=== PATIENT | female | born 1980 | race Two or more races ===

== ENCOUNTER 2017-11-08 06:21 | Emergency (ER) | payer SELFPAY ==
[~2017-11-08] VITALS: Ht 165.1 cm; Wt 68.0 kg
[2017-11-08 06:35] VITALS: BP 126/72
== END 2017-11-08 10:24 | disposition left against medical advice (07) ==
LOC: EDBD 06:21 → ER 06:30
DX: R06.02 Shortness of breath (principal); F41.9 Anxiety disorder, unspecified; Z53.21 Procedure and treatment not carried out due to patient leaving prior to being seen by health care provider
CPT/HCPCS: 71046; 93005

== ENCOUNTER → 2019-11-25 | Emergency (ER) | payer SELFPAY ==
[~2019-11-25] VITALS: Ht 0.1 cm; Wt 0.0 kg
[~2019-11-25] MED LIST: SODIUM CHLORIDE 0.9% 1,000 ML IV ONE; THIAMINE 100mg/ml INJ (200mg/2ml VIAL) ONE; THIAMINE INJ 100 MG in SODIUM CHLORIDE 0.9% 1,000 ML IV ONE
[2019-11-25 20:50] LABS: Basophils # (auto) 0 10 ^3/uL (0-0.2); Eosinophils # (auto) 0 10 ^3/uL (0-0.8); Lymphocytes # (auto) 0.8 10 ^3/uL (0.4-5.4); Monocytes # (auto) 0.3 10 ^3/uL (0-1.3); Neutrophils # (auto) 3.4 10 ^3/uL (1.6-8.6)
[2019-11-25 20:52] LABS: Basophils % (auto) 0.8 % (0.0-2.0); Eosinophils % (auto) 0.9 % (0.0-7.0); Hematocrit 30.3 % (36.0-46.0); Hemoglobin 9.4 g/dL (12.2-16.2); Lymphocytes % (auto) 16.7 % (10.0-50.0); Mean Corpuscular Hemoglobin 22.3 pg (28.0-32.0); Mean Corpuscular Hgb Conc. 31.1 g/dL (32.0-36.0); Mean Corpuscular Volume 71.8 fL (80.0-100.0); Monocytes % (auto) 6.2 % (0.0-12.0); Neutrophils % (auto) 75.4 % (37.0-80.0); Platelet Count (auto) 267 10^3/uL (140-450); Red Blood Cells 4.22 10^6/uL (4.0-5.20); Red Cell Distribution Width 17.4 % (11.8-14.3); White Blood Cell 4.6 10^3/uL (4.4-10.8)
[2019-11-25 21:10] LABS: Albumin 3.6 g/dL (3.4-5.0); BUN/Creatinine Ratio 20.5; Calcium 8.6 mg/dL (8.5-10.1); Magnesium 2.1 mg/dL (1.6-2.6); Potassium 3.7 mmol/L (3.5-5.1); Salicylate < 1.7 mg/dL (2.8-20.0)
[2019-11-25 21:12] LABS: Acetaminophen < 2.0 ug/mL (10-30)
[2019-11-25 21:13] LABS: Bilirubin, Total 0.2 mg/dL (0.2-1.0); Total Protein 7.4 g/dL (6.4-8.2)
[2019-11-25 23:18] LABS: Urine Bacteria NONE SEEN /hpf (None Seen); Urine Blood 1+ /uL (Negative); Urine Mucus FEW (None Seen); Urine Specific Gravity 1.011 (1.001-1.035); Urine WBC 2 /hpf (0 - 5)
[2019-11-25 23:33] LABS: Amphetamine Screen, Urine POSITIVE (NEGATIVE); Barbiturate Scree,Urine NEGATIVE (NEGATIVE); Benzodiazephine Screen, Urine NEGATIVE (NEGATIVE); Cannabinoid Screen, Urine NEGATIVE (NEGATIVE); Cocaine Screen, Urine NEGATIVE (NEGATIVE); Opiate Scree,Urine NEGATIVE (NEGATIVE); Phencyclidine Screen, Urine NEGATIVE (NEGATIVE)
[2019-11-26 01:55] VITALS: BP 133/92
== END | disposition home or self-care (01) ==
LOC: EDBD 20:03 → ER 20:03 → EDUNIT# 20:03
DX: R44.0 Auditory hallucinations (principal); R44.1 Visual hallucinations; F10.129 Alcohol abuse with intoxication, unspecified; J45.909 Unspecified asthma, uncomplicated; Y90.9 Presence of alcohol in blood, level not specified
CPT/HCPCS: 36415; 70450; 80053; 80307; 80320; 80329; 81001; 83735; 84702; 85025; 96365; 99284; J3411; J7030